=== PATIENT | female | born 1955 | race Caucasian/White ===

== ENCOUNTER 2016-12-18 08:51 | Day surgery (SDC) | payer OTHER ==
[~2016-12-18] VITALS: Ht 149.9 cm; Wt 77.7 kg
[~2016-12-18 08:51] MED LIST: 0.9% Sodium Chloride 1,000 ML IV SCH; CHOL200025 PO; HYDR12.55 PO; LYSI1000 PO; PRAS25CA7 PO; Sodium Chloride LOK Flush 10 mL Syringe IV PRN; fentaNYL-PF 50 mCg/mL 2 mL Inj IVPUSH PRN
[2016-12-18 09:20] VITALS: BP 125/68; PULSE 88; RESP 17; O2SAT 96
[2016-12-18] MEDS ORDERED: ASCO100089 PO (09:25)
--- NOTE | 2016-12-18 10:26 | PCM.ENDCOL ---
Colonoscopy Date of Service: Dec 18, 2016 Physician Issac Alberto MD Indication for Procedure Screening blood in the stools Post Procedure Dx & Findings: Polyps diverticuli hemorrhoids Procedure Colonoscopy Prep adequate Cecum 6 minutes Withdrawal 14 minutes PROCEDURE IN DETAIL: After unremarkable rectal examination Olympus video colonoscope was inserted patient's anal canal and was advanced to cecum. Landmarks are identified including the ileocecal valve and appendiceal orifice. Scope was withdrawn systematically. The mucosa of the cecum, ascending, transverse, descending, sigmoid, rectal mucosa lined with whitish, pink, smooth, glistening, normal-appearing mucosa, normal fine branching, underlying vascularity, normal haustra. The patient tolerated procedure and was transported to observation area. In the cecum, there was a 5 mm flat polyp which was removed completely with using cold snare. In the sigmoid, there was a 2 mm polyp which was resected using snare. In the rectum there was a less than 1 mm polyp which was resected completely using cold forceps. Sigmoid colon showed a few small diverticuli. In the rectum retroflexion was done which showed mild hemorrhoids. Anal canal was inspected carefully on the way out and hemorrhoids noted. Impression polyps 3 status post complete removal Hemorrhoids Diverticuli Recommendation Repeat colonoscopy 3 years Diverticular diet Presedation Assessment Risks and Benefits Informed consent was obtained from the patient after all risks and benefits including but not limited to drug reaction, infection, pain, bleeding, perforation, as well as alternatives were discussed. Patient monitoring Continuous pulse oximetry, cardiac monitoring, blood pressure monitoring, IV access, and oxygen at 2L per nasal cannula. Periprocedural Fentanyl: Fentanyl 75mcg Incrementally Midazolam: Midazolam 3mg Incrementally Complications There were no periprocedural complications identified. Post Procedure Plan Post Procedure Recommendations 1. Restrict activities today. 2. Resume normal activities in the morning. 3. Resume medications. 4. Patient informed of normal post procedure side effects as bloating, drowsiness, blood streaking in the stool. 5. average risk CRCS. If colon polyps come back as: -Hyperplastic- can repeat colonoscopy in 10 years -Tubular adenoma- repeat colonoscopy in 5 years -Tubulovillous/villous adenoma- repeat colonoscopy in 3 years -If any dysplasia- return to clinic as soon as possible 6. Please don't hesitate to call me with any questions. Issac Alberto MD Dec 18, 2016 10:26
[2016-12-18 10:29] VITALS: BP 135/71; PULSE 85; RESP 16; O2SAT 96
[2016-12-18 10:40] VITALS: BP 135/69; PULSE 85; RESP 16; O2SAT 98
[2016-12-18 10:50] VITALS: BP 127/69; PULSE 79; RESP 16; O2SAT 95
[2016-12-18 11:00] VITALS: BP 123/68; PULSE 80; RESP 14; O2SAT 99
--- NOTE | 2016-12-19 11:45 | PATH ---
SURGICAL PATHOLOGY Attending Physician:Issac Alberto M.D. CASE STATUS: Signed Out PATIENT NAME: DEVANTE ENAMORADO PID: [id number] : 1955 DATE COLLECTED:12/18/2016 17:26 SPECIMEN: 1: Colon, Biopsy 2: Colon, Biopsy 3: Rectum, Biopsy CLINICAL HISTORY: A: CECAL POLYP B: SIGMOID POLYP C: RECTAL POLYP FINAL DIAGNOSIS: 1.CECAL POLYP: TUBULAR ADENOMA INVOLVING MULTIPLE BIOPSY FRAGMENTS. 2.SIGMOID COLON POLYP: TUBULAR ADENOMA. 3.RECTAL POLYP: POLYPOID-SHAPED FRAGMENT OF COLON MUCOSA CONSISTENT WITH MUCOSAL POLYPOID REDUNDANCY. ICD10 CODE D12.0 GROSS DESCRIPTION: The specimen is received in three formalin filled containers labeled with the patient's name. 1). The specimen is sublabeled "cecal polyp" and consists of 3 portions of tissue which aggregate to 0.6 x 0.5 x 0.4 CM. The specimen is entirely submitted in cassette 1A. 2). The specimen is sublabeled "sigmoid polyp" and consists of an extremely tiny less than 0.1 CM portion of tissue which is entirely submitted in cassette 2A. 3). The specimen is sublabeled "rectal polyp" and consists of a 0.2 x 0.2 x 0.2 CM portion of tissue which is entirely submitted in cassette 3A. 12/18/2016 DAC MICRO DESCRIPTION: See diagnosis. ICD-9 CODES: CPT CODES: 1: 33182 2: 57157 3: 82001 Electronically Signed Out Ben Sebastian MD [facility] [address] [facility], [place] [address] Technical component performed at [facility], [address] [place] [address] [address], [place], [address]
== END 2016-12-18 23:59 | disposition home or self-care (01) ==
LOC: END 08:51
PROVIDERS: ATTEND Internal Medicine
DX: D12.0 Benign neoplasm of cecum (principal); D12.5 Benign neoplasm of sigmoid colon; D12.8 Benign neoplasm of rectum; K57.32 Diverticulitis of large intestine without perforation or abscess without bleeding; K64.9 Unspecified hemorrhoids
CPT/HCPCS: 45380; 45385; 88305; 99153; G0500; J2250; J7030